=== PATIENT | female | born 1950 | race Caucasian/White ===

== ENCOUNTER → 2023-11-10 15:05 | Outpatient (REF) | payer MEDICARE, BC, SELFPAY ==
[2023-11-10 17:23] LABS: Blood Urea Nitrogen 11 mg/dl (7-17)
== END ==
LOC: REG 15:05
PROVIDERS: ATTENDING PHYSICIAN Internal Medicine Gastroenterology; FAMILY PHYSICIAN Student in an Organized Health Care Education/Training Program
DX: K58.0 Irritable bowel syndrome with diarrhea (principal); R10.31 Right lower quadrant pain
CPT/HCPCS: 36415; 82565; 84520

== ENCOUNTER → 2023-12-05 09:12 | Outpatient (REF) | payer MEDICARE, BC, SELFPAY | LOC: RAD 09:12 | PROVIDERS: ATTENDING PHYSICIAN Internal Medicine Gastroenterology; FAMILY PHYSICIAN Student in an Organized Health Care Education/Training Program | DX: R10.31 Right lower quadrant pain (principal); K58.0 Irritable bowel syndrome with diarrhea; Z90.49 Acquired absence of other specified parts of digestive tract | CPT/HCPCS: 74177; Q9967 ==

== ENCOUNTER → 2023-12-25 13:32 | Outpatient (REF) | payer MEDICARE, BC, SELFPAY | LOC: RAD 13:32 | PROVIDERS: ATTENDING PHYSICIAN Student in an Organized Health Care Education/Training Program; OTHER PHYSICIAN Internal Medicine Cardiovascular Disease; REFERRING PHYSICIAN Internal Medicine Gastroenterology | DX: M41.9 Scoliosis, unspecified (principal); M25.552 Pain in left hip | CPT/HCPCS: 72052; 72072; 72114; 73523 ==

== ENCOUNTER → 2024-01-06 10:29 | Outpatient (REF) | payer MEDICARE, BC, SELFPAY | LOC: RAD 10:29 | PROVIDERS: ATTENDING PHYSICIAN Internal Medicine Gastroenterology; FAMILY PHYSICIAN Student in an Organized Health Care Education/Training Program | DX: Z18.9 Retained foreign body fragments, unspecified material (principal) | CPT/HCPCS: 74018 ==

== ENCOUNTER → 2024-01-21 15:04 | Outpatient (REF) | payer MEDICARE, BC, SELFPAY | LOC: WDC 15:04 | PROVIDERS: ATTENDING PHYSICIAN Student in an Organized Health Care Education/Training Program | DX: Z12.31 Encounter for screening mammogram for malignant neoplasm of breast (principal) | CPT/HCPCS: 77063; 77067 ==

== ENCOUNTER → 2024-02-04 10:25 | Outpatient (REF) | payer MEDICARE, BC, SELFPAY | LOC: HWRCS 10:25 | PROVIDERS: ATTENDING PHYSICIAN Internal Medicine Cardiovascular Disease; FAMILY PHYSICIAN Student in an Organized Health Care Education/Training Program | DX: I35.1 Nonrheumatic aortic (valve) insufficiency (principal) | CPT/HCPCS: 93306 ==

== ENCOUNTER 2024-02-19 08:03 | Outpatient (RCR) | payer MEDICARE, BC, SELFPAY | END 2024-02-19 23:59 | disposition home or self-care (01) | LOC: RPT 08:03 | PROVIDERS: ATTENDING PHYSICIAN Student in an Organized Health Care Education/Training Program | DX: M41.9 Scoliosis, unspecified (principal); M25.552 Pain in left hip | CPT/HCPCS: 97162 ==

== ENCOUNTER 2024-03-24 11:05 | Outpatient (RCR) | payer MEDICARE, BC, SELFPAY | END 2024-03-24 23:59 | disposition home or self-care (01) | LOC: RPT 11:05 | PROVIDERS: ATTENDING PHYSICIAN Student in an Organized Health Care Education/Training Program | DX: M41.9 Scoliosis, unspecified (principal); M25.552 Pain in left hip; Z73.6 Limitation of activities due to disability | CPT/HCPCS: 97010; 97110; 97112; 97140 ==

== ENCOUNTER 2024-04-19 06:59 | Outpatient (RCR) | payer MEDICARE, BC, SELFPAY | END 2024-04-19 23:59 | disposition home or self-care (01) | LOC: RPT 06:59 | PROVIDERS: ATTENDING PHYSICIAN Student in an Organized Health Care Education/Training Program | DX: M41.9 Scoliosis, unspecified (principal); M25.552 Pain in left hip; Z73.6 Limitation of activities due to disability; M62.81 Muscle weakness (generalized) | CPT/HCPCS: 97010; 97112; 97140 ==

== ENCOUNTER 2024-05-27 10:01 | Outpatient (RCR) | payer MEDICARE, BC, SELFPAY | END 2024-05-27 23:59 | disposition home or self-care (01) | LOC: RPT 10:01 | PROVIDERS: ATTENDING PHYSICIAN Student in an Organized Health Care Education/Training Program | DX: M41.9 Scoliosis, unspecified (principal); M25.552 Pain in left hip; Z73.6 Limitation of activities due to disability | CPT/HCPCS: 97010; 97110; 97112; 97140 ==

== ENCOUNTER 2024-06-21 09:03 | Outpatient (RCR) | payer MEDICARE, BC, SELFPAY | END 2024-06-21 13:56 | disposition home or self-care (01) | LOC: RPT 09:03 | PROVIDERS: ATTENDING PHYSICIAN Student in an Organized Health Care Education/Training Program | DX: M41.9 Scoliosis, unspecified (principal); M25.552 Pain in left hip; Z73.6 Limitation of activities due to disability | CPT/HCPCS: 97010; 97110; 97112; 97140 ==

== ENCOUNTER → 2024-07-13 08:07 | Outpatient (REF) | payer MEDICARE, BC, SELFPAY | LOC: PAVMRI 08:07 | PROVIDERS: FAMILY PHYSICIAN Student in an Organized Health Care Education/Training Program | DX: M54.50 Low back pain, unspecified (principal) | CPT/HCPCS: 72148 ==

== ENCOUNTER → 2024-08-25 11:33 | Outpatient (REF) | payer MEDICARE, BC, SELFPAY | LOC: MRI 3T 11:33 | PROVIDERS: ATTENDING PHYSICIAN Otolaryngology; FAMILY PHYSICIAN Student in an Organized Health Care Education/Training Program | DX: D33.3 Benign neoplasm of cranial nerves (principal) | CPT/HCPCS: 70553; A9575 ==

== ENCOUNTER 2024-10-07 06:22 | Day surgery (SDC) | payer MEDICARE, BC, SELFPAY | END 2024-10-07 11:24 | disposition home or self-care (01) | LOC: GI 06:22 | PROVIDERS: ATTENDING PHYSICIAN Internal Medicine Gastroenterology | DX: K50.00 Crohn's disease of small intestine without complications (principal); K52.9 Noninfective gastroenteritis and colitis, unspecified; K63.89 Other specified diseases of intestine; K57.30 Diverticulosis of large intestine without perforation or abscess without bleeding; K64.8 Other hemorrhoids; R93.3 Abnormal findings on diagnostic imaging of other parts of digestive tract | CPT/HCPCS: 45380; 88305 ==

== ENCOUNTER → 2025-01-25 08:39 | Outpatient (REF) | payer MEDICARE, BC, SELFPAY | LOC: WDC 08:39 | PROVIDERS: ATTENDING PHYSICIAN Student in an Organized Health Care Education/Training Program | DX: Z12.31 Encounter for screening mammogram for malignant neoplasm of breast (principal) | CPT/HCPCS: 77063; 77067 ==

== ENCOUNTER → 2025-04-06 13:17 | Outpatient (REF) | payer MEDICARE, BC, SELFPAY | LOC: RAD 13:17 | PROVIDERS: ATTENDING PHYSICIAN Student in an Organized Health Care Education/Training Program; REFERRING PHYSICIAN Psychiatry & Neurology Neurology | DX: M81.0 Age-related osteoporosis without current pathological fracture (principal) | CPT/HCPCS: 72110; 73523; 77080 ==

== ENCOUNTER → 2025-07-13 09:04 | Outpatient (REF) | payer MEDICARE, BC, SELFPAY | LOC: WDC 09:04 | PROVIDERS: ATTENDING PHYSICIAN Student in an Organized Health Care Education/Training Program | DX: R92.333 Mammographic heterogeneous density, bilateral breasts (principal); Z12.39 Encounter for other screening for malignant neoplasm of breast | CPT/HCPCS: 76641 ==

== ENCOUNTER 2025-07-15 06:22 | Outpatient (RCR) | payer MEDICARE, BC, SELFPAY | END 2025-07-15 23:59 | disposition home or self-care (01) | LOC: RPT 06:22 | PROVIDERS: ATTENDING PHYSICIAN Student in an Organized Health Care Education/Training Program | DX: I89.0 Lymphedema, not elsewhere classified (principal); Z73.6 Limitation of activities due to disability | CPT/HCPCS: 97162; 97530 ==